=== PATIENT | male | born 1985 | race Caucasian/White ===

== ENCOUNTER 2019-06-13 08:22 | Inpatient (IN) | payer OTHER ==
[2019-06-10 10:47] VITALS: BMI 48.5
--- NOTE | 2019-06-13 08:07 | HP ---
Admitting History and Physical - Admission Chief Complaint: Morbid obesity History Source: Patient Limitations to Obtaining History: No Limitations - Smoking History Smoking history: Never smoked - Alcohol/Substance Use Hx Alcohol Use: No - Social History ADL: Independent Home Medications - Allergies Allergies/Adverse Reactions: Allergies Allergy/AdvReac Type Severity Reaction Status Date / Time No Known Allergies Allergy Verified 06/10/19 10:29 - Home Medications Home Medications: Ambulatory Orders NK [No Known Home Medication] 06/10/19 Family Medical History Family History: Unremarkable Review of Systems - Review of Systems Constitutional: denies: Chills, Fever Neck: reports: No Symptoms Cardiovascular: reports: No Symptoms Respiratory: reports: No Symptoms Gastrointestinal: reports: No Symptoms Neurological: reports: No Symptoms Pain Intensity: 0 Physical Examination Constitutional: Yes: Calm Neck: Yes: WNL Cardiovascular: Yes: WNL Respiratory: Yes: WNL Gastrointestinal: Yes: Soft, Abdomen, Obese Neurological: Yes: Alert, Oriented Problem List - Problems (1) Morbid obesity due to excess calories Code(s): E66.01 - MORBID (SEVERE) OBESITY DUE TO EXCESS CALORIES (2) BMI 45.0-49.9, adult Code(s): Z68.42 - BODY MASS INDEX (BMI) 45.0-49.9, ADULT Assessment/Plan Laparoscopic possible open vertical sleeve gastrectomy, possible liver biopsy, upper endoscopy
[~2019-06-13 08:22] MED LIST: BUPIVACAINE HCL/PF 0.25% (2.5MG/ML) 10 ML VIAL IJ ONE
[2019-06-13] MEDS ORDERED: fentaNYL CITRATE 250 MCG/5 ML VIAL ONE ×2 (08:29→10:07)
[2019-06-13] MEDS ORDERED: PROPOFOL 20 ML ONE ×2 (08:29)
[2019-06-13] MEDS ORDERED: MIDAZOLAM HCL 2 MG/2 ML SINGLE DOSE VIAL ONE ×2 (08:29→11:18)
[2019-06-13] MEDS ORDERED: SUCCINYLCHOLINE CHLORIDE 200 MG/10 ML SYRINGE ONE (08:29)
[2019-06-13] MEDS ORDERED: ROCURONIUM BROMIDE 50 MG/5 ML SYRINGE ONE ×2 (08:29→09:31)
[2019-06-13] MEDS ORDERED: ceFAZolin SODIUM 1 GM VIAL ONE (09:48)
[2019-06-13] MEDS ORDERED: DEXAMETHASONE SOD PHOSPHATE 4 MG/1 ML VIAL ONE (09:48)
[2019-06-13] MEDS ORDERED: HYDROmorphone HCL/PF 1 MG/ML AMP ONE (09:54)
[2019-06-13] MEDS ORDERED: NEOSTIGMINE METHYLSULFATE 0.5 MG/ML - 10 ML MDV ONE (10:41)
[2019-06-13] MEDS ORDERED: KETOROLAC TROMETHAMINE 30 MG/1 ML VIAL ONE (10:50)
[2019-06-13] MEDS ORDERED: GLYCOPYRROLATE 0.2 MG/1 ML VIAL ONE (10:50)
[2019-06-13] MEDS ORDERED: ONDANSETRON 4 MG/2 ML VIAL ONE (10:50)
[2019-06-13] MEDS ORDERED: BUPIVACAINE HCL/PF 0.25% (2.5MG/ML) 10 ML VIAL IJ ONE (11:29)
[2019-06-13] MEDS ORDERED: HYDROmorphone HCL CARPU-JECT 1 MG/1 ML DISP.SYRIN IVPB PRN (11:39)
[2019-06-13] MEDS ORDERED: SODIUM CHLORIDE 1,000 ML IV SCH (11:45)
[2019-06-13] MEDS ORDERED: FAMOTIDINE 20 MG/50 ML IVPB 20 MG/50 ML MG IVPB ONE (11:54)
[2019-06-13] MEDS: ONDANSETRON 4 MG/2 ML VIAL IVPUSH SCH ×4 (12:00→22:54)
[2019-06-13] MEDS ORDERED: LACTATED RINGERS SOLUTION 1,000 ML IV SCH (12:00)
[2019-06-13] MEDS ORDERED: ACETAMINOPHEN 1000 MG/100 ML VIAL (NON FORMULARY) IVPB ONE (12:00)
--- NOTE | 2019-06-13 12:00 | OP ---
Operative Note - Note: Operative Date: 06/13/19 Pre-Operative Diagnosis: Morbid obesity. BMI 48 Operation: Diagnostic laparoscopy. Laparoscopic vertical sleeve gastrectomy. Laparoscopic wedge live rbiopsy. Laparoscopic oversewing of gastric staple line for oozing Post-Operative Diagnosis: Same as Pre-op (as well as hepatomegaly and oozing from gastric staple line) Surgeon: Ed Bullock Psychological Operations Officer: Vikas Caceres Anesthesia: General Specimens Removed: Greater curvature of stomach. Liver biopsy Estimated Blood Loss (mls): 30 Drains & Tubes with Location: 36 Fr Bougie Operative Report Dictated: Yes
[2019-06-13] MEDS ORDERED: FAMOTIDINE 20 MG PREMIXED IVPB IVPB ONE (12:10)
[2019-06-13] MEDS: METOCLOPRAMIDE HCL INJECTION 10 MG/2 ML VIAL IVPUSH SCH ×3 (12:15→22:55)
[2019-06-13 13:00] LABS: HEMOGLOBIN 14.8 GM/dl (11.7-16.9); RDW 13.1 % (11.9-15.9)
[2019-06-13 13:01] LABS: ALBUMIN 3.8 g/dl (3.4-5.0); BILIRUBIN,TOTAL 0.8 mg/dl (0.2-1); CALCIUM 8.9 mg/dl (8.5-10); CREATININE 0.9 mg/dl (0.55-1.3); POTASSIUM 5.2 mmol/L (3.5-5.1); TOT PROT 7.4 g/dl (6.4-8.2)
[2019-06-13 13:02] LABS: HEMATOCRIT 44.1 % (35.4-49); MCH 30.5 pg (25.7-33.7); MCHC 33.6 g/dl (32.0-35.9); MEAN CELL VOLUME 90.8 fl (80-96); MEAN PLT VOLUME 8.1 fl (7.5-11.1); PLATELET COUNT 298 K/MM3 (134-434); RBC 4.85 M/mm3 (4.00-5.60); WHITE BLOOD COUNT 17.4 K/mm3 (4.0-10.8)
--- NOTE | 2019-06-13 13:23 | SPEC ---
DATE OF OPERATION: 06/13/2019 SURGEON: Ed Bullock MD SENIOR NETWORK ENGINEER: Vikas Caceres MD PLACE OF SERVICE: [facility], [address] [place] [address] PREOPERATIVE DIAGNOSES: 1. Morbid obesity. 2. Body mass index of 48.5. POSTOPERATIVE DIAGNOSES: 1. Morbid obesity. 2. Body mass index of 48.5. 3. Hepatomegaly. 4. Oozing from gastric staple line. PROCEDURES: 1. Diagnostic laparoscopy. 2. Laparoscopic vertical sleeve gastrectomy. 3. Laparoscopic wedge liver biopsy. 4. Laparoscopic oversewing of gastric staple line for oozing. SPECIMENS: 1. Greater curvature of the stomach. 2. Liver biopsy. ESTIMATED BLOOD LOSS: 30 mL. DRAINS: None. ANESTHESIA: GET. BOUGIE SIZE: 36-Occitan. REASON FOR PROCEDURE: This is a 33-year-old gentleman who presents to the office for weight loss options. After describing different options, he decided to proceed with a laparoscopic, possible open, vertical sleeve gastrectomy, possible liver biopsy, upper endoscopy. The patient was seen by the respective subspecialties and cleared for surgery. The risks and benefits of the procedure were explained. These included bleeding, infection, hernia, IL, DVT, PE, injury to surrounding structures including the liver, colon, bowel, spleen, esophagus, vessel injury, nerve injury, weight regain, gastric leak, staple line leak, sleeve leak, obstruction, vitamin deficiency, hair loss and as some of the possible complications. The patient understood and signed informed consent. DESCRIPTION OF PROCEDURE: The patient was placed supine on the operating room table. The patient underwent general endotracheal intubation. The arms were brought out at 90 degrees and secured. A footboard was placed and the legs were secured laterally with padding. The abdomen was prepped and draped in the usual sterile fashion. A timeout was performed. An incision was made in the left upper quadrant and a Veress needle inserted. Pneumoperitoneum was established. Subsequently, the Veress needle was removed and a 5-mm trocar was placed under direct visualization with the laparoscope. The laparoscopic camera was then inserted and inspection of the abdominal cavity was performed. An incision was then made in the supraumbilical area and a 15-mm trocar was placed under direct visualization. A 5-mm trocar was then placed in the right upper quadrant and a 5-mm trocar was placed below the left subcostal margin. A stab wound was made in the subxiphoid area and a Ana clamp inserted and removed to dilate the tract. A Vicki liver retractor was inserted. The post was secured at the bedside by the nursing staff. The patient was placed in steep reverse Trendelenburg position and the Vicki liver retractor was used to secure the liver towards the anterior abdominal wall. The pylorus was identified and 6 cm proximal to it, the lesser sac was entered using the LigaSure device. All lateral attachments to the greater curvature of the stomach, including the short gastric vessels, were ligated using the LigaSure device toward the gastrosplenic and gastrophrenic ligaments. Once this was done in its entirety, it was confirmed that all tubes within the nasal or oropharyngeal cavity, including a temperature probe were removed by Anesthesia. The bougie was then inserted by Anesthesia. Transection of the stomach was then begun staying adjacent to the bougie but away from the angularis. Transection of the stomach was performed near the portion of the stomach where the lesser sac was entered. Two laparoscopic Endo-DANNY black vita were used at this location. Laparoscopic Endo DANNY purple staple loads were then used for the remainder of the transection until the greater curvature of the stomach was fully transected. This was done staying close to the bougie. Care was taken to stay away from the angle of His cephalad. The staple line was then inspected. Hemostasis was identified. A leak test was then performed. It was clamped distally to the staple line. Irrigation solution was placed in the left upper quadrant and air was insufflated by Anesthesia into the sleeve. No leaks were identified. No obstruction was identified. This was done through the entirety of the staple line. The stomach was suctioned and the bougie removed fully intact under direct visualization. At this point, the irrigation solution was suctioned and again, hemostasis was noted. A wedge liver biopsy was then performed. The left lobe of the liver was identified. A portion of the edge of the left lobe of the liver was grasped. Using electrocautery, a wedge of the left liver was excised. The specimen was removed and sent off the field. Hemostasis of the wedge liver biopsy site was attained and noted using electrocautery. The 15-mm supraumbilical trocar was then removed and the greater curvature specimen removed from the site using a sponge stick snider. A Virgil-Samuel device was then used to close the fascia with a 0 Vicryl suture at the site. Again, hemostasis was noted. The Vicki liver retractor was then removed under direct visualization. Pneumoperitoneum was desufflated. Hemostasis was noted at all incision sites and Marcaine was injected at all incision sites. A 3-0 Vicryl suture was used to close the deep subcutaneous tissue at the 15-mm incision site. All incision sites were closed using 4-0 Biosyn. Because of oozing at the staple line, the staple line needed to be oversewn in multiple locations using Endo Stitch device with a 2-0 Ethibond suture. After the entirety of the staple line was oversewn, hemostasis was noted. Sterile dressings were applied. The patient tolerated the procedure well and was transferred to the recovery room in stable condition. Holly CRABTREE/[id number]
[2019-06-13] MEDS: ACETAMINOPHEN 1000 MG/100 ML VIAL (NON FORMULARY) IVPB SCH ×2 (17:56→23:16)
[2019-06-13] MEDS: ENOXAPARIN NA (PORCINE) 40 MG/0.4 ML DISP.SYRIN SQ SCH (21:06)
[2019-06-13] MEDS: FAMOTIDINE 20 MG/50 ML IVPB 20 MG/50 ML MG IVPB SCH (21:06)
[2019-06-14] MEDS: ONDANSETRON 4 MG/2 ML VIAL IVPUSH SCH ×3 (03:34→13:39)
[2019-06-14] MEDS: ACETAMINOPHEN 1000 MG/100 ML VIAL (NON FORMULARY) IVPB SCH (05:46)
[2019-06-14] MEDS: METOCLOPRAMIDE HCL INJECTION 10 MG/2 ML VIAL IVPUSH SCH ×2 (05:46→13:39)
[2019-06-14 07:58] LABS: HEMATOCRIT 38.5 % (35.4-49); HEMOGLOBIN 12.9 GM/dl (11.7-16.9); MCH 30.2 pg (25.7-33.7); MCHC 33.5 g/dl (32.0-35.9); MEAN CELL VOLUME 89.9 fl (80-96); MEAN PLT VOLUME 8.4 fl (7.5-11.1); PLATELET COUNT 281 K/MM3 (134-434); RBC 4.29 M/mm3 (4.00-5.60); RDW 12.9 % (11.9-15.9)
[2019-06-14 08:02] LABS: ALBUMIN 3.3 g/dl (3.4-5.0); BILIRUBIN,TOTAL 0.9 mg/dl (0.2-1); CALCIUM 8.4 mg/dl (8.5-10); CREATININE 0.7 mg/dl (0.55-1.3); POTASSIUM 4.6 mmol/L (3.5-5.1); TOT PROT 6.8 g/dl (6.4-8.2)
--- NOTE | 2019-06-14 08:53 | DS ---
Physical Exam: SUBJECTIVE: Patient seen and examined this am. No nausea or emesis. No CP or SOB. OOB and ambulating, voiding on his own. OBJECTIVE: Vital Signs Temperature 98.1 F 06/14/19 05:00 Pulse Rate 98 H 06/14/19 05:00 Respiratory Rate 18 06/14/19 05:00 Blood Pressure 144/89 06/14/19 05:00 O2 Sat by Pulse Oximetry (%) 100 06/14/19 05:00 PHYSICAL EXAM GENERAL: The patient is awake, alert, and fully oriented, in no acute distress. LUNGS: Breath sounds equal, clear to auscultation bilaterally, no wheezes. HEART: Regular rate and mild tachycardia. ABDOMEN: Soft, obese, incisional tenderness. Inc c/d/i. EXTREMITIES: 2no calf tenderness or swelling b/l. MIKIE /SCD in place LABS CBC,CMP WBC 14.0 K/mm3 (4.0-10.8) H 06/14/19 07:00 RBC 4.29 M/mm3 (4.00-5.60) 06/14/19 07:00 Hgb 12.9 GM/dl (11.7-16.9) 06/14/19 07:00 Hct 38.5 % (35.4-49) 06/14/19 07:00 MCV 89.9 fl (80-96) 06/14/19 07:00 MCH 30.2 pg (25.7-33.7) 06/14/19 07:00 MCHC 33.5 g/dl (32.0-35.9) 06/14/19 07:00 RDW 12.9 % (11.9-15.9) 06/14/19 07:00 Plt Count 281 K/MM3 (134-434) 06/14/19 07:00 MPV 8.4 fl (7.5-11.1) 06/14/19 07:00 Sodium 135 mmol/L (136-145) L 06/14/19 07:00 Potassium 4.6 mmol/L (3.5-5.1) 06/14/19 07:00 Chloride 105 mmol/L (98-107) 06/14/19 07:00 Carbon Dioxide 23 mmol/L (21-32) 06/14/19 07:00 Anion Gap 7 MMOL/L (8-16) L 06/14/19 07:00 BUN 8.0 mg/dl (7-18) 06/14/19 07:00 Creatinine 0.7 mg/dl (0.55-1.3) 06/14/19 07:00 Est GFR (CKD-EPI)AfAm 144.72 06/14/19 07:00 Est GFR (CKD-EPI)NonAf 124.87 06/14/19 07:00 Random Glucose 118 mg/dl (74-106) H 06/14/19 07:00 Calcium 8.4 mg/dl (8.5-10) L 06/14/19 07:00 Total Bilirubin 0.9 mg/dl (0.2-1) 06/14/19 07:00 AST 34 U/L (15-37) 06/14/19 07:00 ALT 48 U/L (13-61) 06/14/19 07:00 Alkaline Phosphatase 79 U/L (45-117) 06/14/19 07:00 Total Protein 6.8 g/dl (6.4-8.2) 06/14/19 07:00 Albumin 3.3 g/dl (3.4-5.0) L 06/14/19 07:00 HOSPITAL COURSE: HOSPITAL COURSE: The patient was admitted to the Med-Surg Unit after elective bariatric surgery. Now, s/p laparoscopic vertical sleeve gastrectomy. The day of surgery, the patient ambulated the hallways with assistance. The patient was monitored with remote tele/continuous pulse ox. Narcotic and non-narcotic pain management control was achieved with oral and IV pain control. Upper GI series was obtained the following morning and no leak, extravastion or gastric outlet obstruction. Started on a Bariatric Stage 1 diet and tolerated well. Tonia-operative IV ABX were administered in addition to GI prophylaxis. DVT prophylaxis was achieved with SCDs and early ambulation. The discharge instructions and an oral pain management plan were reviewed with the patient. All questions answered. Above plan discussed with Dr. Bullock and agreed. Date of Admission:06/13/19 Date of Discharge: 06/14/19
--- NOTE | 2019-06-14 08:59 | DS ---
Physical Exam: [facility] Patient Name: MARLIN GARNER Date of : 87 Patient Status: Inpatient Attending Provider: dE Bullock Date: 06/14/19 08:49 Initialization Date: 06/14/19 08:49 Physical Exam: SUBJECTIVE: Patient seen and examined this am. No nausea or emesis. No CP or SOB. OOB and ambulating, voiding on his own. OBJECTIVE: Vital Signs Temperature 98.1 F 06/14/19 05:00 Pulse Rate 98 H 06/14/19 05:00 Respiratory Rate 18 06/14/19 05:00 Blood Pressure 144/89 06/14/19 05:00 O2 Sat by Pulse Oximetry (%) 100 06/14/19 05:00 PHYSICAL EXAM GENERAL: The patient is awake, alert, and fully oriented, in no acute distress. LUNGS: Breath sounds equal, clear to auscultation bilaterally, no wheezes. HEART: Regular rate and mild tachycardia. ABDOMEN: Soft, obese, incisional tenderness. Inc c/d/i. EXTREMITIES: 2no calf tenderness or swelling b/l. MIKIE /SCD in place LABS CBC,CMP WBC 14.0 K/mm3 (4.0-10.8) H 06/14/19 07:00 RBC 4.29 M/mm3 (4.00-5.60) 06/14/19 07:00 Hgb 12.9 GM/dl (11.7-16.9) 06/14/19 07:00 Hct 38.5 % (35.4-49) 06/14/19 07:00 MCV 89.9 fl (80-96) 06/14/19 07:00 MCH 30.2 pg (25.7-33.7) 06/14/19 07:00 MCHC 33.5 g/dl (32.0-35.9) 06/14/19 07:00 RDW 12.9 % (11.9-15.9) 06/14/19 07:00 Plt Count 281 K/MM3 (134-434) 06/14/19 07:00 MPV 8.4 fl (7.5-11.1) 06/14/19 07:00 Sodium 135 mmol/L (136-145) L 06/14/19 07:00 Potassium 4.6 mmol/L (3.5-5.1) 06/14/19 07:00 Chloride 105 mmol/L (98-107) 06/14/19 07:00 Carbon Dioxide 23 mmol/L (21-32) 06/14/19 07:00 Anion Gap 7 MMOL/L (8-16) L 06/14/19 07:00 BUN 8.0 mg/dl (7-18) 06/14/19 07:00 Creatinine 0.7 mg/dl (0.55-1.3) 06/14/19 07:00 Est GFR (CKD-EPI)AfAm 144.72 06/14/19 07:00 Est GFR (CKD-EPI)NonAf 124.87 06/14/19 07:00 Random Glucose 118 mg/dl (74-106) H 06/14/19 07:00 Calcium 8.4 mg/dl (8.5-10) L 06/14/19 07:00 Total Bilirubin 0.9 mg/dl (0.2-1) 06/14/19 07:00 AST 34 U/L (15-37) 06/14/19 07:00 ALT 48 U/L (13-61) 06/14/19 07:00 Alkaline Phosphatase 79 U/L (45-117) 06/14/19 07:00 Total Protein 6.8 g/dl (6.4-8.2) 06/14/19 07:00 Albumin 3.3 g/dl (3.4-5.0) L 06/14/19 07:00 HOSPITAL COURSE: HOSPITAL COURSE: The patient was admitted to the Med-Surg Unit after elective bariatric surgery. Now, s/p laparoscopic vertical sleeve gastrectomy. The day of surgery, the patient ambulated the hallways with assistance. The patient was monitored with remote tele/continuous pulse ox. Narcotic and non-narcotic pain management control was achieved with oral and IV pain control. Upper GI series was obtained the following morning and no leak, extravastion or gastric outlet obstruction. Started on a Bariatric Stage 1 diet and tolerated well. Tonia-operative IV ABX were administered in addition to GI prophylaxis. DVT prophylaxis was achieved with SCDs and early ambulation. The discharge instructions and an oral pain management plan were reviewed with the patient. All questions answered. Above plan discussed with Dr. Bullock and agreed. Date of Admission:06/13/19 Date of Discharge: 06/14/19 Minutes to complete discharge: 20
[2019-06-14] MEDS: ENOXAPARIN NA (PORCINE) 40 MG/0.4 ML DISP.SYRIN SQ SCH (09:10)
[2019-06-14] MEDS: FAMOTIDINE 20 MG/50 ML IVPB 20 MG/50 ML MG IVPB SCH (09:10)
[2019-06-14] MEDS ORDERED: oxyCODONE HCL 5 MG TABLET PO PRN (10:54)
[2019-06-14] MEDS ORDERED: SODIUM CHLORIDE 1,000 ML IV SCH (11:00)
--- NOTE | 2019-06-14 12:30 | PN ---
Progress Note (short form) - Note Progress Note: POD 1 Pain controlled No nausea Vital Signs Period Temp Pulse Resp BP Sys/Nix Pulse Ox Last 24 Hr 98.0 F-99.0 F 67-108 14-18 125-150/60-89 95-100 CBC,CMP WBC 14.0 K/mm3 (4.0-10.8) H 06/14/19 07:00 RBC 4.29 M/mm3 (4.00-5.60) 06/14/19 07:00 Hgb 12.9 GM/dl (11.7-16.9) 06/14/19 07:00 Hct 38.5 % (35.4-49) 06/14/19 07:00 MCV 89.9 fl (80-96) 06/14/19 07:00 MCH 30.2 pg (25.7-33.7) 06/14/19 07:00 MCHC 33.5 g/dl (32.0-35.9) 06/14/19 07:00 RDW 12.9 % (11.9-15.9) 06/14/19 07:00 Plt Count 281 K/MM3 (134-434) 06/14/19 07:00 MPV 8.4 fl (7.5-11.1) 06/14/19 07:00 Sodium 135 mmol/L (136-145) L 06/14/19 07:00 Potassium 4.6 mmol/L (3.5-5.1) 06/14/19 07:00 Chloride 105 mmol/L (98-107) 06/14/19 07:00 Carbon Dioxide 23 mmol/L (21-32) 06/14/19 07:00 Anion Gap 7 MMOL/L (8-16) L 06/14/19 07:00 BUN 8.0 mg/dl (7-18) 06/14/19 07:00 Creatinine 0.7 mg/dl (0.55-1.3) 06/14/19 07:00 Est GFR (CKD-EPI)AfAm 144.72 06/14/19 07:00 Est GFR (CKD-EPI)NonAf 124.87 06/14/19 07:00 Random Glucose 118 mg/dl (74-106) H 06/14/19 07:00 Calcium 8.4 mg/dl (8.5-10) L 06/14/19 07:00 Total Bilirubin 0.9 mg/dl (0.2-1) 06/14/19 07:00 AST 34 U/L (15-37) 06/14/19 07:00 ALT 48 U/L (13-61) 06/14/19 07:00 Alkaline Phosphatase 79 U/L (45-117) 06/14/19 07:00 Total Protein 6.8 g/dl (6.4-8.2) 06/14/19 07:00 Albumin 3.3 g/dl (3.4-5.0) L 06/14/19 07:00 UGI: no leak/obstruction Clears Discharge planning Problem List - Problems (1) Morbid obesity due to excess calories Code(s): E66.01 - MORBID (SEVERE) OBESITY DUE TO EXCESS CALORIES (2) BMI 45.0-49.9, adult Code(s): Z68.42 - BODY MASS INDEX (BMI) 45.0-49.9, ADULT
[2019-06-14 14:22] VITALS: BP 136/79; PULSE 94; TEMP 98.4
--- NOTE | 2019-06-17 16:34 | PATH ---
Surgical Pathology Report Patient Name: MARLIN GARNER Med. Rec. #: [id number] /Age/Gender: 1985 (Age: 33) / M Account: [id number] Location: COUNT INCLUDES THE [facility] MED[facility]SUR[facility] Taken: 06/13/2019 Received: 06/13/2019 Reported: 06/17/2019 Physicians: Ed Bullock M.D. Specimen(s) Received A: GREATER CURVATURE STOMACH B: LIVER BIOPSY Clinical History Morbid obesity Final Diagnosis A. GREATER CURVATURE OF STOMACH, LAPAROSCOPIC GASTRIC SLEEVE EXCISION: PORTION OF STOMACH SHOWING MILD CHRONIC MUCOSAL INFLAMMATION. IMMUNOSTAIN IS NEGATIVE FOR H. PYLORI ORGANISMS. B. LIVER, BIOPSY: PORTION OF LIVER SHOWING MILD STEATOSIS (~10%). TRICHROME STAIN SHOWS NO APPRECIABLE INCREASE IN FIBROSIS. IRON STAIN SHOWS NO INCREASE IN IRON. Electronically Signed Reina Raines M.D. Gross Description A. Received in formalin, labeled "greater curvature of stomach," is a 104 gram, 19.5 x 3.4 x 3.4 cm. portion of stomach with a stapled margin of resection. The serosa is peralta-kent with minimal attached fat. The mucosa is peralta-pink with normal folds. No mucosal masses are identified. Calender Inspector sections are submitted in one cassette. B. Received in formalin labeled "liver biopsy," is a 1.5 x 0.8 x 0.5 cm peralta-brown portion of soft tissue, consistent with a portion of liver. The specimen is bisected and entirely submitted in one cassette. 06/14/2019 saudi06/14/2019
== END 2019-06-14 15:15 | disposition home or self-care (01) | DRG 403 ==
LOC: FM/S 08:22
PROVIDERS: ADMIT Surgery; ATTEND Surgery
PROC: 0DJ04ZZ Inspection of Upper Intestinal Tract, Percutaneous Endoscopic Approach (ICD-10-PCS; 2019-06-13)
PROC: 0DB64Z3 Excision of Stomach, Percutaneous Endoscopic Approach, Vertical (ICD-10-PCS; principal; 2019-06-13 09:53)
PROC: 0FB24ZX Excision of Left Lobe Liver, Percutaneous Endoscopic Approach, Diagnostic (ICD-10-PCS; 2019-06-13 09:53)
DX: E66.01 Morbid (severe) obesity due to excess calories (principal); Z68.42 Body mass index [BMI] 45.0-49.9, adult; R16.0 Hepatomegaly, not elsewhere classified
CPT/HCPCS: 36415; 74241-TC-FY; 80053; 85027; 88305-TC; 94760; J0131; J7030

== ENCOUNTER 2022-08-07 01:10 | Emergency (ER) | payer OTHER ==
[2022-08-07 01:39] VITALS: BP 143/87; PULSE 88; RESP 17; TEMP 97.6; BMI 43.2
[2022-08-07 05:47] LABS: BASO % 0.5 % (0-2.0); EOS % 1.3 % (0-4.5); HEMATOCRIT 43.1 % (35.4-49); LYMPH % 18.9 % (8-40); MCH 30.9 pg (25.7-33.7); MCHC 34.8 g/dl (32.0-35.9); MEAN CELL VOLUME 88.7 fl (80-96); MEAN PLT VOLUME 7.5 fl (7.5-11.1); MONO % 5.8 % (3.8-10.2); NEUT % 73.5 % (42.8-82.8); PLATELET COUNT 265 10^3/uL (134-434); RBC 4.86 M/mm3 (4.00-5.60); RDW 13.3 % (11.9-15.9); WHITE BLOOD COUNT 8.3 K/mm3 (4.0-10.0)
[2022-08-07] MEDS ORDERED: LIDOCAINE 5% TOPICAL PATCH TP ONE ×5 (07:31→07:35)
[2022-08-07] MEDS ORDERED: ACETAMINOPHEN 500 MG TABLET (FP) PO ONE (07:32)
[2022-08-07] MEDS ORDERED: KETOROLAC TROMETHAMINE 30 MG/1 ML VIAL IM ONE (08:25)
[2022-08-07] MEDS ORDERED: KETOROLAC TROMETHAMINE 30 MG/1 ML VIAL ONE (08:51)
[2022-08-07] MEDS ORDERED: ACETAMINOPHEN 325 MG TABLET (FP) ONE (08:51)
[2022-08-07] MEDS ORDERED: LIDOCAINE 5% TOPICAL PATCH ONE (08:51)
[2022-08-07 09:48] LABS: ALBUMIN 3.8 g/dl (3.4-5.0); BILIRUBIN,TOTAL 0.6 mg/dL (0.2-1); BLOOD UREA NITROGEN 13.6 mg/dL (7-18); CALCIUM 9.3 mg/dL (8.5-10.1); CREATININE 0.9 mg/dL (0.55-1.3); TOT PROT 7.7 g/dl (6.4-8.2)
[2022-08-07] MEDS ORDERED: LIDOCAINE PATCH REMOVAL MC SCH ×5 (22:00)
== END 2022-08-07 10:14 | disposition home or self-care (01) ==
LOC: JER 01:10
PROC: 3E023GC Introduction of Other Therapeutic Substance into Muscle, Percutaneous Approach (ICD-10-PCS; principal; 2022-08-07)
DX: M54.2 Cervicalgia (principal); M54.50 Low back pain, unspecified; M25.512 Pain in left shoulder; V49.40XA Driver injured in collision with unspecified motor vehicles in traffic accident, initial encounter
CPT/HCPCS: 36415; 71046-TC-FY; 73090-TC-LT-FY; 73130-TC-LT-FY; 80053; 84484; 85025; 85730; 93005; 93010; 99285-25

== ENCOUNTER 2023-08-26 13:18 | Emergency (ER) | payer OTHER ==
[2023-08-26 13:41] VITALS: BP 127/77; PULSE 74; RESP 18; TEMP 98.2; BMI 41.8
[2023-08-26] MEDS ORDERED: KETOROLAC TROMETHAMINE 30 MG/1 ML VIAL IM ONE (14:32)
[2023-08-26] MEDS ORDERED: ACETAMINOPHEN 500 MG TABLET (FP) PO ONE (14:32)
[2023-08-26] MEDS ORDERED: LIDOCAINE 5% TOPICAL PATCH TP ONE (14:32)
[2023-08-26] MEDS ORDERED: KETOROLAC TROMETHAMINE 30 MG/1 ML VIAL ONE (16:01)
[2023-08-26] MEDS ORDERED: LIDOCAINE 4% PATCH TP ONE (16:01)
[2023-08-26] MEDS ORDERED: ACETAMINOPHEN 500 MG TABLET (FP) ONE (16:06)
[2023-08-26 16:21] LABS: URINE APPEARANCE CLEAR; URINE BILIRUBIN NEGATIVE (NEGATIVE); URINE COLOR YELLOW; URINE GLUCOSE (UA) NEGATIVE (NEGATIVE); URINE KETONE NEGATIVE (NEGATIVE); URINE LEUK ESTERASE NEGATIVE (NEGATIVE); URINE NITRITE NEGATIVE (NEGATIVE); URINE PROTEIN NEGATIVE (NEGATIVE)
[2023-08-26] MEDS ORDERED: LIDOCAINE PATCH REMOVAL MC ONE (22:00)
== END 2023-08-26 17:02 | disposition home or self-care (01) ==
LOC: JER 13:18
PROC: 3E0233Z Introduction of Anti-inflammatory into Muscle, Percutaneous Approach (ICD-10-PCS; principal; 2023-08-26)
DX: M54.50 Low back pain, unspecified (principal)
CPT/HCPCS: 81003; 87086; 99284-25